=== PATIENT | male | born 1960 | race Caucasian/White ===

== ENCOUNTER 2020-07-23 10:42 | Outpatient (REF) | payer OTHER, SELFPAY | END 2020-07-23 10:43 | disposition home or self-care (01) | LOC: HO.LAB 10:42 | PROVIDERS: Visit Provider Internal Medicine | DX: Z20.828 Contact with and (suspected) exposure to other viral communicable diseases (principal) | CPT/HCPCS: 87635 ==

== ENCOUNTER 2021-01-01 08:57 | Outpatient (REF) | payer MEDICARE, SELFPAY ==
[2021-01-01 09:56] LABS: COVID-19 Test Negative (Negative); IDNOW Serial# 08D9AD1C
== END 2021-01-01 08:58 | disposition home or self-care (01) ==
LOC: HO.LAB 08:57
PROVIDERS: Visit Provider Internal Medicine
DX: Z20.822 Contact with and (suspected) exposure to COVID-19 (principal)
CPT/HCPCS: 36415; 87635; C9803

== ENCOUNTER 2021-08-15 10:19 | Outpatient (REF) | payer MEDICARE, SELFPAY ==
[2021-08-15 13:59] LABS: Estimated Average Glucose 111 mg/dL; Hemoglobin A1c % 5.5 %
[2021-08-15 14:37] LABS: Alanine Aminotransferase 21 U/L (0-40); Albumin Level 4.2 g/dL (3.5-5.0); Alkaline Phosphatase 88 U/L (39-117); Anion Gap 13 (12-20); Aspartate Amino Transferase 20 U/L (5-37); Bilirubin Total 0.4 mg/dL (0.0-1.0); Blood Urea Nitrogen 10 mg/dL (9-16); Carbon Dioxide 24 mmol/L (22-29); Chloride 106 mmol/L (96-108); Estimated Glomerular Filt Rate > 60; Glucose Random 91 mg/dL (60-115); Potassium 4.5 mmol/L (3.3-5.1); Sodium 138 mmol/L (135-145); TSH reflex Free T4 2.01 uIU/mL (0.32-4.0); Total Protein 7.1 g/dL (6.5-8.0); Vitamin D 25-OH Total 23.1 ng/mL (>30)
[2021-08-16 08:58] LABS: ~HepC Num1 0.19 S/CO (0.00-0.79); ~Hepatitis C Antibody Nonreactive (Nonreactive)
[2021-08-16 09:31] LABS: HBS Num1 0.46 mIU/mL (0-7.99); HBc Num1 0.15 S/CO (0.00-0.79); Hepatitis B Core Antibody Nonreactive (Nonreactive); ~Hepatitis B Surface Antibody NONREACTIVE (Nonreactive)
== END 2021-08-15 10:20 | disposition home or self-care (01) ==
LOC: HO.10HDL 10:19
PROVIDERS: Visit Provider Nurse Practitioner Primary Care
DX: Z00.00 Encounter for general adult medical examination without abnormal findings (principal); Z13.220 Encounter for screening for lipoid disorders; Z11.3 Encounter for screening for infections with a predominantly sexual mode of transmission; Z12.11 Encounter for screening for malignant neoplasm of colon
CPT/HCPCS: 36415; 80053; 82306; 83036; 84443; 86704; 86706; 86803

== ENCOUNTER 2021-09-05 06:32 | Outpatient (REF) | payer MEDICARE, SELFPAY ==
--- NOTE | ~2021-09-05 | XR_ITS ---
EXAMINATION: XR KNEE, RIGHT XR KNEE STANDING VIEW, BILATERAL CLINICAL INFORMATION: Right knee pain. COMPARISON: None TECHNIQUE: AP standing view of both knees. Lateral and sunrise views of the right knee. FINDINGS: No significant joint space narrowing of the right knee. There is minimal narrowing of the medial compartment of the left knee. There is prominent enthesopathy of the right patella and a chronic ossification at the tibial tubercle compatible with chronic Liam-Schlatter's disease. No significant joint effusion. No acute osseous abnormality. XR/XR knee standing BI IMPRESSION: Degenerative findings, as described, and evidence of remote [place]-Schlatter's disease of the right knee. No acute abnormality.
--- NOTE | ~2021-09-05 | XR_ITS ---
EXAMINATION: XR KNEE, RIGHT XR KNEE STANDING VIEW, BILATERAL CLINICAL INFORMATION: Right knee pain. COMPARISON: None TECHNIQUE: AP standing view of both knees. Lateral and sunrise views of the right knee. FINDINGS: No significant joint space narrowing of the right knee. There is minimal narrowing of the medial compartment of the left knee. There is prominent enthesopathy of the right patella and a chronic ossification at the tibial tubercle compatible with chronic Liam-Schlatter's disease. No significant joint effusion. No acute osseous abnormality. XR/XR knee RT 2V IMPRESSION: Degenerative findings, as described, and evidence of remote [place]-Schlatter's disease of the right knee. No acute abnormality.
== END 2021-09-05 06:33 | disposition home or self-care (01) ==
LOC: HO.HOSX 06:32
PROVIDERS: Visit Provider Physician Assistant
DX: M92.523 Juvenile osteochondrosis of tibia tubercle, bilateral (principal); M17.11 Unilateral primary osteoarthritis, right knee; M76.821 Posterior tibial tendinitis, right leg
CPT/HCPCS: 73560; 73565; 99202